=== PATIENT | female | born 1985 ===

== ENCOUNTER 2020-06-09 04:38 | Emergency (ER) | payer MEDICAID, SELFPAY ==
[2020-06-09 05:15] VITALS: BP 120/65; PULSE 65; RESP 16; TEMP 37.1; O2SAT 99; BMI 21.2
[2020-06-09 05:19] VITALS: O2SAT 99
--- NOTE | 2020-06-09 05:31 | XR_ITS ---
EXAMINATION: XR CHEST CLINICAL INFORMATION: Cough COMPARISON: None TECHNIQUE: Frontal view of the chest was obtained. FINDINGS: The lungs are clear with no focal consolidation. No evidence of pneumothorax, pulmonary edema, or pleural effusions. The cardiomediastinal silhouette is unremarkable. No acute osseous findings. XR/XR chest 1V IMPRESSION: No acute cardiopulmonary findings.
--- NOTE | 2020-06-09 05:33 | ED_ITS ---
HPI - URI/Sore Throat General Chief Complaint: Upper Respiratory Symptoms Stated Complaint: COUGH Time Seen by Provider: 06/09/20 05:31 Source: patient Mode of arrival: ambulatory Limitations: no limitations History of Present Illness HPI Narrative: This is a 34-year-old female who is an everyday smoker who presents with 2 days of worsening cough and rhinorrhea without associated fevers, chills, sore throat, chest pain /palpitations, recent travel, GI symptoms, or symptoms. Related Data Allergies Allergy/AdvReac Type Severity Reaction Status Date / Time No Known Allergies Allergy Unverified 03/25/20 16:55 Review of Systems Review of Systems: Pertinent positives and negatives as stated in HPI and 10 point review of systems is otherwise negative. [facility] Past Medical History Source: nursing notes reviewed Social History Social History Advance Directives: No Advance Directives Information Provided: No Physical Exam Vital Signs: Vital Signs: Last Vital Signs Temp 98.8 F 06/09/20 05:15 Pulse 65 06/09/20 05:15 Resp 16 06/09/20 05:15 BP 120/65 06/09/20 05:15 Pulse Ox 99 06/09/20 05:19 Body Mass Index 21.2 VITAL SIGNS: Reviewed. GENERAL: Well developed, well nourished, in no acute distress. HEAD: Normocephalic/atraumatic, EYES: PERRLA, EOMI intact without pain, no nystagmus/pallor/icterus noted EARS: Ext canals without abnormality, TMs non-bulging and non-erythematous NOSE: Nares patent bilateral OROPHARYNX: no oral lesions noted, posterior pharynx clear and non-erythematous without noted tonsillar enlargement/erythema/exudates NECK: Supple, no adenopathy LUNGS: Normal breath sounds. No adventitious sounds or accessory muscle use. SpO2<99> CARDIOVASCULAR: Regular rate and rhythm without noted murmurs, no JVD or lower extremity edema. ABDOMEN: Soft, non-tender, non-distended with bowel sounds. No rigidity. No guarding. No palpable masses or hernias noted MUSCULOSKELETAL: No tenderness, deformities, or effusions noted on gross inspection. EXTREMITIES: No cyanosis, clubbing or edema. SKIN: Inspection of the skin reveals no rashes, ulcerations, jaundice, pallor, or petechiae. NEUROLOGIC: Alert and oriented x 4. Strength and sensation to light touch were grossly intact x 4. Course Course Course Narrative: This is a 34-year-old female smoker with history and clinical presentation consistent with likely viral URI but will evaluate for possible pneumonia although patient is not hypoxic, tachypneic, or a tachycardic. Patient will also be swabbed for COVID-19 and receive a combination of analgesics for symptom control. All results and findings were discussed with patient bedside and she was discharged home in stable condition. Review of chest x-ray is without acute findings to suggest pneumonia. Discharge Plan Discharge Clinical Impression: Viral syndrome Patient Disposition: Home, Self-Care Instructions: Viral Syndrome (ED) Additional Instructions: 1. Tylenol 1000 mg, por v?a oral, cada 6 horas seg?n sea necesario para temperaturas superiores a 100,4?C o owen corporales. No exceda los 4000 mg en 24 horas. 2. Ibuprofeno 400 mg, por v?a oral con leche o alimentos, cada 6 horas seg?n sea necesario para temperaturas superiores a 100,4?C o owen corporales. 3. me pusieron un hisopo para COVID-19 y me pusieron en cuarentena seg?n las pautas del estado de [place] hasta que lo llamen con los resultados de lee prueba. El paciente y / o la shazia reconocen que comprenden los resultados (seg?n corresponda), el diagn?stico, el plan de tratamiento, la necesidad de seguimiento y los s?ntomas que deber?an impulsar el regreso a la myra de emergencias. Referrals: Physician,Unknown [Primary Care Provider] - 2 days Print Language: Divehi
[2020-06-09] MEDS: Acetaminophen 325 MG TABLET 975 MG PO (06:03)
[2020-06-09] MEDS: Ketorolac Tromethamine 15 MG/ML VIAL IM (06:04)
[2020-06-09 07:28] VITALS: BP 98/56; PULSE 68; O2SAT 97
== END 2020-06-09 07:29 | disposition home or self-care (01) ==
PROVIDERS: Emergency Provider Student in an Organized Health Care Education/Training Program
DX: B34.9 Viral infection, unspecified (principal); R05 Cough; Z20.828 Contact with and (suspected) exposure to other viral communicable diseases; F17.200 Nicotine dependence, unspecified, uncomplicated; Z71.6 Tobacco abuse counseling
CPT/HCPCS: 71045; 96372; 99284; J1885; U0003

== ENCOUNTER 2020-06-29 11:01 | Outpatient (REF) | payer MEDICAID, SELFPAY | END 2020-06-29 11:02 | disposition home or self-care (01) | LOC: HO.LAB 11:01 | PROVIDERS: Visit Provider Internal Medicine | DX: Z20.828 Contact with and (suspected) exposure to other viral communicable diseases (principal) | CPT/HCPCS: C9803; U0003 ==

== ENCOUNTER 2020-08-09 09:31 | Outpatient (REF) | payer MEDICAID, SELFPAY ==
[2020-08-10 08:47] LABS: BV Int Neg Control Negative (Negative); BV Int Pos Control Positive (Positive)
[2020-08-10 19:27] LABS: C. trachomatis RNA TMA NOT DETECTED (NOT DETECTED); N. gonorrhoeae RNA TMA NOT DETECTED (NOT DETECTED)
[2020-08-12 17:07] LABS: HPV mRNA E6/E7 rflx Not Detected (Not Detected)
== END 2020-08-09 09:32 | disposition home or self-care (01) ==
LOC: HO.LAB 09:31
PROVIDERS: Visit Provider Obstetrics & Gynecology
DX: Z01.419 Encounter for gynecological examination (general) (routine) without abnormal findings (principal); Z11.3 Encounter for screening for infections with a predominantly sexual mode of transmission; Z11.51 Encounter for screening for human papillomavirus (HPV)
CPT/HCPCS: 36415; 87480; 87491; 87510; 87591; 87624; 87660; 88142

== ENCOUNTER 2020-08-11 10:59 | Outpatient (REF) | payer MEDICAID, SELFPAY ==
[2020-08-11 13:48] LABS: Syphilis Screen Nonreactive (Nonreactive)
[2020-08-12 08:37] LABS: HBsAGNum1 0.19 S/CO (0.00-0.99); HIV AB/AG Nonreactive (Nonreactive); HIV Num 1 0.06 S/CO (0.00-0.99); Hepatitis B Surface Antigen Negative (Negative)
[2020-08-12 08:42] LABS: ~HepC Num1 0.17 S/CO (0.00-0.79); ~Hepatitis C Antibody Nonreactive (Nonreactive)
[2020-08-12 17:32] LABS: C. trachomatis RNA TMA NOT DETECTED (NOT DETECTED); N. gonorrhoeae RNA TMA NOT DETECTED (NOT DETECTED)
== END 2020-08-11 11:00 | disposition home or self-care (01) ==
LOC: HO.LAB 10:59
PROVIDERS: PCP Internal Medicine; Visit Provider Obstetrics & Gynecology
DX: Z11.3 Encounter for screening for infections with a predominantly sexual mode of transmission (principal); Z11.8 Encounter for screening for other infectious and parasitic diseases; Z11.4 Encounter for screening for human immunodeficiency virus [HIV]; Z11.59 Encounter for screening for other viral diseases
CPT/HCPCS: 36415; 86780; 86803; 87340; 87389; 87491; 87591

== ENCOUNTER 2020-09-14 14:48 | Outpatient (REF) | payer MEDICAID, SELFPAY | END 2020-09-14 14:49 | disposition home or self-care (01) | LOC: HO.LAB 14:48 | PROVIDERS: Visit Provider Internal Medicine | DX: Z20.822 Contact with and (suspected) exposure to COVID-19 (principal) | CPT/HCPCS: 36415; C9803; U0003; U0005 ==

== ENCOUNTER 2020-12-13 10:57 | Outpatient (REF) | payer MEDICAID, SELFPAY ==
[2020-12-14 02:41] LABS: CT PCR NOT DETECTED (Not Detect.); NG PCR DETECTED (Not Detect.)
[2020-12-14 08:30] LABS: BV Int Neg Control Negative (Negative); BV Int Pos Control Positive (Positive)
== END 2020-12-13 10:58 | disposition home or self-care (01) ==
LOC: HO.LAB 10:57
PROVIDERS: PCP Family Medicine; Visit Provider Obstetrics & Gynecology
DX: Z11.3 Encounter for screening for infections with a predominantly sexual mode of transmission (principal)
CPT/HCPCS: 87480; 87491; 87510; 87591; 87660; 99212

== ENCOUNTER 2020-12-14 10:33 | Outpatient (REF) | payer MEDICAID, SELFPAY ==
[2020-12-15 09:11] LABS: Syphilis Screen Nonreactive (Nonreactive)
[2020-12-15 09:17] LABS: HIV AB/AG Nonreactive (Nonreactive); HIV Num 1 0.07 S/CO (0.00-0.99)
[2020-12-15 09:58] LABS: HBsAGNum1 0.24 S/CO (0.00-0.99); Hepatitis B Surface Antigen Negative (Negative); ~HepC Num1 0.11 S/CO (0.00-0.79); ~Hepatitis C Antibody Nonreactive (Nonreactive)
== END 2020-12-14 10:34 | disposition home or self-care (01) ==
LOC: HO.LAB 10:33
PROVIDERS: PCP Family Medicine; Visit Provider Obstetrics & Gynecology
DX: Z01.84 Encounter for antibody response examination (principal); Z11.4 Encounter for screening for human immunodeficiency virus [HIV]; Z11.3 Encounter for screening for infections with a predominantly sexual mode of transmission; A54.9 Gonococcal infection, unspecified
CPT/HCPCS: 36415; 86780; 86803; 87340; 87389; 96372; 99212; J0696

== ENCOUNTER 2021-01-12 13:49 | Outpatient (REF) | payer MEDICAID, SELFPAY ==
[2021-01-13 02:49] LABS: CT PCR NOT DETECTED (Not Detect.); NG PCR NOT DETECTED (Not Detect.)
== END 2021-01-12 13:50 | disposition home or self-care (01) ==
LOC: HO.LAB 13:49
PROVIDERS: Visit Provider Obstetrics & Gynecology
DX: Z11.3 Encounter for screening for infections with a predominantly sexual mode of transmission (principal); A54.9 Gonococcal infection, unspecified
CPT/HCPCS: 87491; 87591; 99212

== ENCOUNTER 2021-03-28 11:24 | Outpatient (REF) | payer MEDICAID, SELFPAY | END 2021-03-28 11:25 | disposition home or self-care (01) | LOC: HO.LAB 11:24 | PROVIDERS: Visit Provider Internal Medicine | DX: Z20.822 Contact with and (suspected) exposure to COVID-19 (principal) | CPT/HCPCS: C9803; U0003; U0005 ==

== ENCOUNTER → 2021-08-10 09:08 | Outpatient (BNVA) | payer MEDICAID, SELFPAY | PROVIDERS: Visit Provider Obstetrics & Gynecology ==

== ENCOUNTER 2022-03-06 14:05 | Outpatient (REF) | payer MEDICAID, SELFPAY ==
--- NOTE | ~2022-03-06 | MM_ITS ---
EXAMINATION: MM DIAGNOSTIC DIGITAL BREAST TOMOSYNTHESIS, BILATERAL US DIAGNOSTIC ULTRASOUND BREAST, LEFT CLINICAL INFORMATION: 36-year-old with pain lower left breast. No erythema, discharge, or palpable mass. Patient notes prior history right breast pain, no recent right breast pain. Benign right ultrasound-guided biopsy 2019, fibroadenoma. Intentional 30 pound weight loss since prior mammography 2018. The lifetime risk of breast cancer based on the Tyrer-Cuzick Model is 8%. COMPARISON: Mammography: 07/15/2018, 07/03/2018, ultrasound-guided right breast biopsy 07/15/2018. TECHNIQUE: Digital breast tomosynthesis is performed in both the craniocaudal and mediolateral oblique views along with computer-aided detection (CAD). Synthesized 2D images are generated from the tomosynthesis. Ultrasound left breast is targeted to the areas of clinical concern lower left breast. Patient is able to point to the area of mastodynia at time of imaging. Grayscale imaging and color Doppler are performed without and with harmonics. FINDINGS: There are scattered areas of fibroglandular density (ACR BI-RADS breast composition Category b). The breasts appear symmetrically smaller when compared with prior mammography 2018 consistent with intentional weight loss. There is biopsy clip marker anterior 3:00 right breast. The known fibroadenoma is decreased in size. There is no interval mass or architectural abnormality. No abnormal calcifications. The axilla are unremarkable. There is no skin thickening or coarsening of the Rj's ligaments. Ultrasound demonstrates no cystic or solid mass or architectural abnormality or focal duct ectasia. No skin thickening or edema tracking in soft tissue planes. No hyperemia. Results are discussed with the patient at time of visit. MM/MM tomosynthesis diagnostic BI IMPRESSION: -No mammographic evidence of malignancy or inflammatory changes. -Normal targeted left breast ultrasound. ASSESSMENT: BI-RADS 2: Benign RECOMMENDATION: 1. Patient's left mastodynia should be managed based on the clinical impression. 2. Otherwise, routine annual screening mammography, beginning age 40, or earlier as clinical risk factors warrant. This patient's information was entered into a reminder system with a target due date for their next mammogram.
== END 2022-03-06 14:06 | disposition home or self-care (01) ==
LOC: HO.MAMMO 14:05
PROVIDERS: PCP General Practice; Visit Provider General Practice
DX: N64.4 Mastodynia (principal)
CPT/HCPCS: 76642; 77062; 77066

== ENCOUNTER 2023-01-22 11:31 | Outpatient (REF) | payer MEDICAID, SELFPAY ==
[2023-01-23 12:20] LABS: BV Int Neg Control Negative (Negative); BV Int Pos Control Positive (Positive)
== END 2023-01-22 11:32 | disposition home or self-care (01) ==
LOC: HO.HHCL 11:31
PROVIDERS: Visit Provider Internal Medicine
DX: F41.8 Other specified anxiety disorders (principal); N94.6 Dysmenorrhea, unspecified
CPT/HCPCS: 36415; 84439; 87480; 87510; 87660

== ENCOUNTER 2023-02-15 09:04 | Outpatient (AMB) | payer MEDICAID, SELFPAY ==
--- NOTE | 2023-02-15 09:11 | MHC.OFFVIS ---
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 No complaints. 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 Sexually active: Yes Sexual orientation: Straight/Heterosexual Gender identity: Female Female Reproductive History Menstrual Age of Menarche: 9 Duration of menses: 3-5 days Date of last menstrual period: 02/07/23 control method: permanent sterilization Total pregnancies: 6 Full term: 4 Number of Living Children: 4 Ab induced: 2 Date of last pap smear: 08/10/20 Review of Systems Const All systems reviewed & are unremarkable except as noted in HPI and below Card Reports as per HPI Resp Reports as per HPI GI Reports as per HPI and Reports no additional complaints Reports as per HPI Physical Exam Vital Signs: Last Vital Signs BP 98/60 02/15/23 09:15 BMI result Body Mass Index 20.5 Const General: cooperative, healthy appearing and comfortable Chest Chest palpation & inspection: normal inspection of the chest and normal palpation of entire chest wall Breast/axilla inspection: normal inspection of the breasts and normal inspection of the axillae Breast/axilla palpation: normal palpation of the breasts, normal palpation of the axillae and no axillary lymphadenopathy Resp Effort & Inspection: normal respiratory effort Auscultation: clear to auscultation bilaterally Percussion: percussion normal Cardio Palpation: normal PMI Rate: regular rate Rhythm: regular rhythm Heart sounds: no murmurs and no rubs Peripheral pulses: Peripheral pulses 2+ throughout GI Inspection: Yes normal to inspection Palpation (GI): Soft to palpation, nontender, no guarding, not rigid and No hepatosplenomegaly present Percussion: Yes normal to percussion Auscultation: normal bowel sounds Rectal Exam - Female: deferred General: Yes bladder normal to palpation External Female Exam: No lesion Speculum Exam - Vagina: normal appearance of the vagina, normal palpation, normal vaginal discharge and not erythematous Speculum Exam - Cervix: normal appearance of the cervix and normal palpation Bimanual exam- vagina & uterus: normal bimanual exam, normal palpation, uterine size normal, bladder normal to palpation, consistency normal and normal palpation Bimanual Exam- Adnexa, other: normal adnexae, no masses and no tenderness Assessment & Plan Assessment & Plan (1) Well woman exam: Comment: BERNARDINO 1 in 2018 2020 co testing negative Code(s): Z01.419 - Encounter for gynecological examination (general) (routine) without abnormal findings Plan: Cotesting done. Mammogram ordered. Counseled the patient about the recommended dietary allowance of 1000 mg of Calcium & 600 IU of vitamin D. The patient was instructed to perform monthly self-breast exams and to schedule an annual exam in a year; All questions answered and the patient verbalized understanding. Instructed the patient to schedule annual exam in a year (2) Screen for STD (sexually transmitted disease): Code(s): Z11.3 - Encounter for screening for infections with a predominantly sexual mode of transmission Plan: STD screening tests done includes: BV panel for trichomonas, GC/CT will send patient for serology std screening for HIV, RPR, Hep b s Ag, HepC Ab. Instructions given the patient to schedule a follow-up appointment for repeat serology screen in 6 months for possible false negatives. Orders: Orders Hepatitis B Surface Antigen Today Z20.2 - Contact with and (suspected) exposure to infections with a predominantly sexual mode of transmission Hepatitis C Antibody Today Z20.2 - Contact with and (suspected) exposure to infections with a predominantly sexual mode of transmission HIV Ab/Ag Today Z20.2 - Contact with and (suspected) exposure to infections with a predominantly sexual mode of transmission Syphilis Screen Today Z20.2 - Contact with and (suspected) exposure to infections with a predominantly sexual mode of transmission Coding Level of Care Code Est Pt Prev Care 40-64y(96209) Diagnoses Well woman exam Z01.419 Screen for STD (sexually transmitted disease) Z11.3
[2023-02-15 09:15] VITALS: BP 98/60; BMI 20.5
== END 2023-02-15 09:38 | disposition home or self-care (01) ==
LOC: HO.HWS 09:04
PROVIDERS: PCP General Practice; Visit Provider Obstetrics & Gynecology
DX: Z01.419 Encounter for gynecological examination (general) (routine) without abnormal findings (principal); Z11.3 Encounter for screening for infections with a predominantly sexual mode of transmission
CPT/HCPCS: 99395

== ENCOUNTER 2023-02-15 09:04 | Outpatient (REF) | payer MEDICAID, SELFPAY ==
[2023-02-20 05:09] LABS: HPV mRNA E6/E7 rflx Not Detected (Not Detected)
== END 2023-02-15 09:05 | disposition home or self-care (01) ==
LOC: HO.LNP 09:04
PROVIDERS: PCP General Practice; Visit Provider Obstetrics & Gynecology
DX: Z01.419 Encounter for gynecological examination (general) (routine) without abnormal findings (principal); Z11.51 Encounter for screening for human papillomavirus (HPV)
CPT/HCPCS: 87624; 88142

== ENCOUNTER 2023-02-15 09:43 | Outpatient (REF) | payer MEDICAID, SELFPAY ==
[2023-02-16 03:06] LABS: Syphilis Screen Nonreactive (Nonreactive)
[2023-02-16 03:08] LABS: HBsAGNum1 0.32 S/CO (0.00-0.99); HIV AB/AG Nonreactive (Nonreactive); HIV Num 1 0.06 S/CO (0.00-0.99); Hepatitis B Surface Antigen Negative (Negative); ~HepC Num1 0.11 S/CO (0.00-0.79); ~Hepatitis C Antibody Nonreactive (Nonreactive)
[2023-02-16 05:10] LABS: CT PCR NOT DETECTED (Not Detect.); NG PCR NOT DETECTED (Not Detect.)
[2023-02-16 11:44] LABS: BV Int Neg Control Negative (Negative)
[2023-02-16 11:45] LABS: BV Int Pos Control Positive (Positive)
== END 2023-02-15 09:44 | disposition home or self-care (01) ==
LOC: HO.LAB 09:43
PROVIDERS: Visit Provider Obstetrics & Gynecology
DX: Z01.419 Encounter for gynecological examination (general) (routine) without abnormal findings (principal); Z11.4 Encounter for screening for human immunodeficiency virus [HIV]; Z11.3 Encounter for screening for infections with a predominantly sexual mode of transmission; Z20.2 Contact with and (suspected) exposure to infections with a predominantly sexual mode of transmission
CPT/HCPCS: 0353U; 86780; 86803; 87340; 87389; 87480; 87510; 87660

== ENCOUNTER 2023-02-16 08:16 | Outpatient (REF) | payer MEDICAID, SELFPAY | END 2023-02-16 08:17 | disposition home or self-care (01) | LOC: HO.LAB 08:16 | PROVIDERS: Visit Provider Obstetrics & Gynecology | DX: Z13.89 Encounter for screening for other disorder (principal) ==

== ENCOUNTER 2024-06-09 12:47 | Outpatient (REF) | payer MEDICAID, SELFPAY ==
[2024-06-10 11:36] LABS: Bacterial Vaginosis PCR POSITIVE (Negative); Candida Group PCR NOT DETECTED (Not Detect); Candida glab krusei PCR NOT DETECTED (Not Detect); Trichomonas vaginalis PCR NOT DETECTED (Not Detect)
[2024-06-10 12:06] LABS: CT PCR NOT DETECTED (Not Detect.); NG PCR NOT DETECTED (Not Detect.)
== END 2024-06-09 12:48 | disposition home or self-care (01) ==
LOC: HO.LNP 12:47
PROVIDERS: PCP General Practice; Visit Provider Obstetrics & Gynecology
DX: Z01.419 Encounter for gynecological examination (general) (routine) without abnormal findings (principal); Z11.3 Encounter for screening for infections with a predominantly sexual mode of transmission; Z20.2 Contact with and (suspected) exposure to infections with a predominantly sexual mode of transmission
CPT/HCPCS: 0352U; 87491; 87591; 99395

== ENCOUNTER 2024-06-09 12:47 | Outpatient (AMB) | payer MEDICAID, SELFPAY ==
--- NOTE | 2024-06-09 12:50 | A.OFFVIS_ITS ---
Vital Signs 06/09/24 12:56 Height 5 ft 1 in Weight 120 lb BMI 22.7 BP 116/68 Intake Visit Reasons: annual/DO NOT RS X2 President + Publisher Required: Yes President + Publisher Language: Biscuit Machine Operator Services: President + Publisher Present (in person) President + Publisher Name: Kelly ERNST Information Interpreted: non-clinical & clinical Pharmacy Coordinator: Pharmacy Coordinator Present (Kelly ERNST) Accompanied by: Self / Same As Patient Allergies No Known Allergies Allergy (Verified 06/09/24 12:57) Is last menstrual period known: Yes HPI Comments Details: Presenting for annual exam. No complaints. The patient is requesting STD screen Last Pap/HPV was negative in 02/28, this was preceded by BERNARDINO in 2018, followed by negative co testing in 2020 Last Mammogram was BI-RADS 2 in 02/27 [facility] Medical History Dysplasia of cervix, low grade (BERNARDINO 1) Anxiety Surgical History History of tubal ligation Family History Mother Diabetes Social History Household Members: Children Housing: Apartment Alcohol intake: current Alcohol intake frequency: holidays/special occasions only Patient Tobacco Use Status: Never used Tobacco Substance Use Type: Marijuana Current occupational status: employed 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 Sexual orientation: Straight/Heterosexual Gender identity: Female Female Reproductive History Menstrual Age of Menarche: 9 control method: permanent sterilization Total pregnancies: 6 Full term: 4 Number of Living Children: 4 Ab induced: 2 Date of last pap smear: 02/16/23 Review of Systems Const All systems reviewed & are unremarkable except as noted in HPI and below Card Reports as per HPI Resp Reports as per HPI GI Reports as per HPI and Reports no additional complaints Reports as per HPI Physical Exam Vital Signs: Last Vital Signs BP 116/68 06/09/24 12:56 BMI result Body Mass Index 22.7 Const General: cooperative, healthy appearing and comfortable Chest Chest palpation & inspection: normal inspection of the chest and normal palpation of entire chest wall Breast/axilla inspection: normal inspection of the breasts and normal inspection of the axillae Breast/axilla palpation: normal palpation of the breasts, normal palpation of the axillae and no axillary lymphadenopathy Resp Effort & Inspection: normal respiratory effort Auscultation: clear to auscultation bilaterally Percussion: percussion normal Cardio Palpation: normal PMI Rate: regular rate Rhythm: regular rhythm Heart sounds: no murmurs and no rubs Peripheral pulses: Peripheral pulses 2+ throughout GI Inspection: Yes normal to inspection Palpation (GI): Soft to palpation, nontender, no guarding, not rigid and No hepatosplenomegaly present Percussion: Yes normal to percussion Auscultation: normal bowel sounds Rectal Exam - Female: deferred General: Yes bladder normal to palpation External Female Exam: No lesion Speculum Exam - Vagina: normal appearance of the vagina, normal palpation, normal vaginal discharge and not erythematous Speculum Exam - Cervix: normal appearance of the cervix and normal palpation Bimanual exam- vagina & uterus: normal bimanual exam, normal palpation, uterine size normal, bladder normal to palpation, consistency normal and normal palpation Bimanual Exam- Adnexa, other: normal adnexae, no masses and no tenderness Assessment & Plan Assessment & Plan (1) Well woman exam: Comment: BERNARDINO 1 in 2019 2020 in 2022 co testing negative Code(s): Z01.419 - Encounter for gynecological examination (general) (routine) without abnormal findings Category: Medical Plan: Cotesting done. Mammogram ordered. Counseled the patient about the recommended dietary allowance of 1000 mg of Calcium & 600 IU of vitamin D. The patient was instructed to perform monthly self-breast exams and to schedule an annual exam in a year; All questions answered and the patient verbalized understanding. Instructed the patient to schedule annual exam in a year (2) Screen for STD (sexually transmitted disease): Code(s): Z11.3 - Encounter for screening for infections with a predominantly sexual mode of transmission Category: Medical Plan: STD screening tests done includes: BV panel for trichomonas, GC/CT will send patient for serology std screening for HIV, RPR, Hep b s Ag, HepC Ab. Instructions given the patient to schedule a follow-up appointment for repeat serology screen in 6 months for possible false negatives. Orders: Orders MM tomosynthesis screening BI 4 Months Z12.31 - Encounter for screening mammogram for malignant neoplasm of breast Hepatitis B Surface Antigen Today Z20.2 - Contact with and (suspected) exposure to infections with a predominantly sexual mode of transmission Hepatitis C Antibody Today Z20.2 - Contact with and (suspected) exposure to infections with a predominantly sexual mode of transmission HIV Ab/Ag Today Z20.2 - Contact with and (suspected) exposure to infections with a predominantly sexual mode of transmission Syphilis Screen Today Z20.2 - Contact with and (suspected) exposure to infections with a predominantly sexual mode of transmission Coding Level of Care Code Est Pt Prev Care 18-39y(40909) Diagnoses Well woman exam Z01.419 Screen for STD (sexually transmitted disease) Z11.3
[2024-06-09 12:56] VITALS: BP 116/68; BMI 22.7
== END 2024-06-09 13:38 | disposition home or self-care (01) ==
PROVIDERS: PCP General Practice; Visit Provider Obstetrics & Gynecology
DX: Z01.419 Encounter for gynecological examination (general) (routine) without abnormal findings (principal); Z11.3 Encounter for screening for infections with a predominantly sexual mode of transmission
CPT/HCPCS: 99395

== ENCOUNTER 2024-06-09 13:13 | Outpatient (REF) | payer MEDICAID, SELFPAY ==
[2024-06-10 04:00] LABS: Syphilis Screen Nonreactive (Nonreactive)
[2024-06-10 04:25] LABS: HBsAGNum1 0.35 S/CO (0.00-0.99); HIV AB/AG Nonreactive (Nonreactive); HIV Num 1 0.06 S/CO (0.00-0.99); Hepatitis B Surface Antigen Negative (Negative); ~HepC Num1 0.12 S/CO (0.00-0.79); ~Hepatitis C Antibody Nonreactive (Nonreactive)
== END 2024-06-09 13:14 | disposition home or self-care (01) ==
LOC: HO.LAB 13:13
PROVIDERS: PCP General Practice; Visit Provider Obstetrics & Gynecology
DX: Z11.4 Encounter for screening for human immunodeficiency virus [HIV] (principal); Z20.2 Contact with and (suspected) exposure to infections with a predominantly sexual mode of transmission
CPT/HCPCS: 0352U; 86780; 86803; 87340; 87389; 87491; 87591; 99395

== ENCOUNTER 2024-06-23 11:05 | Outpatient (REF) | payer MEDICAID, SELFPAY ==
[2024-06-26 04:43] LABS: TS Negative Control Passed; TS Panel A 0; TS Panel B 0; TS Positive Control Passed; TSpotTB Negative (Negative)
== END 2024-06-23 11:06 | disposition home or self-care (01) ==
LOC: HO.HHCL 11:05
PROVIDERS: Visit Provider General Practice
DX: Z02.1 Encounter for pre-employment examination (principal)
CPT/HCPCS: 36415; 86481

== ENCOUNTER → 2024-07-15 17:02 | Outpatient (BNV) | payer MEDICAID, SELFPAY | PROVIDERS: PCP General Practice; Visit Provider Radiology Diagnostic Radiology | DX: M54.50 Low back pain, unspecified (principal); R05.9 Cough, unspecified | CPT/HCPCS: 71045; 72100 ==

== ENCOUNTER 2025-04-07 23:04 | Emergency (ER) | payer MEDICAID, SELFPAY ==
--- NOTE | ~2025-04-07 | XR_ITS ---
CLINICAL HISTORY: fall 3 views sacrum and coccyx Comparison: None provided Findings No acute fractures. No significant degenerative change. No erosions. IMPRESSION: No acute findings This document has been electronically signed by: Meera Hunter MD on 04/08/2025 04:11:23
[2025-04-07 23:08] VITALS: BP 103/55; PULSE 71; RESP 16; TEMP 36.3; O2SAT 95; BMI 23.0
--- OUTSIDE RECORDS SUMMARY | 2025-04-08 01:36 | XMS_ITS | Clinical Summary ---
Author Organization [employer] Address [address] [facility] [address] [place] [address] Care Team Providers Care Material Handler Loader Name Role Phone Yaa Ortiz MD Primary Care Provider [phone] Allergies No known active allergies Medications * This document contains information received from the source organization and may not represent a complete record from that organization. ketotifen (Zaditor) 0.025 % ophthalmic solutionIndication s:Acute bacterial conjunctivitis of both eyes Administer 1 drop into both eyes in the morning and at bedtime. 10 mL 2 Active hydrOXYzine pamoate (Vistaril) 25 MG capsule Take 1 capsule (25 mg) by mouth every 8 (eight) hours if needed for anxiety. 90 capsule 3 4 Active escitalopram (Lexapro) 5 MG tabletIndications: Depression with anxiety Take 1 tablet (5 mg) by mouth Once per day. For anxiety 90 tablet 2 4 Active loratadine (Claritin) 10 MG tablet Take 1 tablet (10 mg) by mouth Once per day. 30 tablet 4 025 Active Active Problems Problem Noted Date Diagnosed Date Problem related to housing and economic circumst ances 05/30/2024 Panic disorder 05/30/2024 Dysmenorrhea 01/22/2023 Assessment & Plan (01/22/2023 11:07 AM EDT): Do not miss appointment with gynecology BV test done today Irregular periods 01/22/2023 Annual physical exam 12/12/2022 Depression with anxiety 12/12/2022 Assessment & Plan (06/01/2024 5:49 PM EST): Switch from Sertraline to Lexapro 5mg Watch out for side effects of SI, stomach upset, nausea, FLOYD. Stop if SI occurs, to inform me if other side effects occur Can increase to 10mg in 4-6 weeks if no side effects Spoke with today, who placed her on referral lists again, and [facility] consult Assessment & Plan (01/22/2023 11:06 AM EDT): Counseling done N called today I ask patient to take her sertraline every day as prescribed Ill check TSH Assessment & Plan (12/14/2022 10:28 AM EDT): Assessment: Patient with no interest/pleasure in doing things, feeling depressed/hopeless, sleep disturbance, no energy/feeling tired, poor appetite, feeling bad about herself, trouble focusing, feeling anxious/on edge and changes in speech and movement. She denies SI/HI. Presentation in the context of severe depression that began three years ago, at risk of losing her apartment and inability to work her complete hours at work. Patient will benefit from OP therapy, psychopharmacology, and case management. At this time Juju Turcios meets criteria for Visit Diagnoses: Problem List Items Addressed This Visit Other Depression with anxiety Patient ready to address current needs Yes Strengths include unable to assess PLAN: 1. Follow up with [facility]: Not recommended for follow-up 2. Patient goal is receive services. 3. Behavioral Recommendations a. Patient will engage in OP therapy and psychopharmacology services when established b. Patient will work with case management c. Patient will request to speak with a [facility] during next visit, if needed Cervical intraepithelial neoplasia grade 1 06/23 Vitamin D deficiency 10/29/2018 Loss of hair 06/24/2018 Marijuana use 06/24/2018 Pain of breast 06/24/2018 Telogen effluvium 06/24/2018 Resolved Problems Problem Noted Date Diagnosed Date Resolved Date Acute bacterial conjunctivitis of both eyes 06/23/2022 05/30/2024 Assessment & Plan (06/23/2022 2:58 PM EST): Right > left. No chemosis, normal ROM of eye. Will start with antibiotics, f/up if no improvement of symptoms. Encounters Date Type Department Care Team Description 03/24/2025 Telephone [facility] [address] [place], [place] [phone] Yaa Ortiz MD Nov Recall from Last 3 Months Immunizations Immunization Administration Dates Next Due Hep B, adult 11/23/2015 Influenza injectable quadrivalent preservative f ree 06/24/2018 Pfizer Covid-19 Vaccine 12+ 05/25/2021, Pfizer Covid-19 Vaccine 12+ giulia-sucrose (Fried C ap) 12/27/2021 Tdap 06/24/2018 Varicella 12/27/2021,11/23/2015 Family History Medical History Relation Name Comments Cancer Maternal Grandfather Diabetes type II Maternal Grandfather Diabetes type II Maternal Grandmother Heart disease Maternal Grandmother Diabetes type II Mother Relation Name Status Comments Maternal Grandfather Maternal Grandmother Mother Social History Tobacco Use Types Packs/Day Years Used Date Smoking Tobacco: Every Day Cigarettes Passive Smoke Exposure: Never Smokeless Tobacco: Never Tobacco Cessation:Ready to Q uit: Not Asked; Counseling Given: Not Answered Alcohol Use Standard Drinks/Week Comments Never 0 (1 standard drink = 0.6 oz pur e alcohol) Alcohol Answer Date Recorded How often do you have a drink containing alcohol ? 1 05/30/2024 How many drinks containing a lcohol do you have on a typical day when you are drinking? 0 05/30/2024 How often do you have six or more drinks on one occasion? 0 05/30/2024 Depression Answer Date Recorded Patient Health Questionnaire-9 Score 21 05/30/2024 Patient Health Questionnaire-9 Score 21 05/30/2024 Last PHQ-9: Questionnaire Data Not on file 1 07/30/2023 Housing Stability Answer Date Recorded What is your housing situation today? I do not have housing (Staying with others, in a hotel, in a senior care, living outside on the street, on a beach, in a car, or in a park 05/30/[address] you li ve. Do you have problems with any of the following? None of the above 05/30/2024 Food Insecurity Answer Date Recorded Within the past 12 months, y ou worried that your food would run out before you got money to buy more: Never True 05/22/2024 Within the past 12 months,th e food you bought just didn't last and you didn't have enough money to get more: Never True Transportation Answer Date Recorded In the past 12 months, has l ack of transportation kept you from medical appts, meetings, work or from getting things needed for daily living? No 05/22/2024 Utilities Answer Date Recorded In the past 12 months, has t he electric, gas, oil or water company threatened to shut off services in your home? 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 Not on file Not on file Last Filed Vital Signs Vital Sign Reading Time Taken Comments Blood Pressure 100/70 05/30/2024 10:25 AM EST Pulse 62 05/30/2024 10:25 AM EST Temperature 37.1 C (98.7 F) 05/30/2024 10:25 AM EST Respiratory Rate 18 05/30/2024 10:25 AM EST Oxygen Saturation 98% 01/22/2023 10:05 AM EDT Inhaled Oxygen Concentration - - Weight 53.6 kg (118 lb 4 oz) 05/30/2024 10:25 AM EST Height 157.5 cm (5' 2 ) 05/30/2024 10:25 AM EST Body Mass Index 21.63 05/30/2024 10:25 AM EST Plan of Treatment Health Maintenance Due Date Last Done Comments Lipid Panel 1985 Disability Screening 1985 Family Planning (PISQ) 10/21/1999 HPV Vaccines (1 - 3-dose series) 10/21/1999 Pneumococcal Vaccine: Pediatrics (0 to 5 Years) and At-Risk Patients (6 to 49) Years (1 of 2 - PCV) 10/21/2003 Hepatitis B Vaccines (2 of 3 - 19+ 3-dose series) 12/21/2015 11/23/2015 Mammogram 03/06/2023 03/06/2022, 07/03/2018 Depression Monitoring 11/27/2024 05/30/2024 , 05/30/2024 COVID-19 Vaccine (4 - 2024-2 6 season) 2025 12/27/2021, 05/25/2021, 04/25/2021 Influenza Vaccine (#1) 2025 06/24/2018 Alcohol/Substance Use Screening 05/30/2025 05/30/2024 SDOH Screening 05/30/2025 05/30/2024 Tobacco Screening 05/30/2025 05/30/2024 Cervical Cancer Screening 02/16/2028 HPV/Cotest 02/16/2028 08/09/2020, 08/09/2020 Pap Smear 02/16/2028 02/15/2023, 08/09/2020, 01/16/2019 DTaP/Tdap/Td Vaccines (2 - T d or Tdap) 06/24/2028 06/24/2018 Zoster Vaccines (1 of 2) 2034 RSV Patients and Patients Aged 60 years or older (1 - 1-dose 75+ series) 10/21/2059 HIV Screening Completed 06/09/2024, 12/14/2020, 08/11/2020 Hepatitis C Screening Completed 06/09/2024 , 12/14/2020, 08/11/2020 HIB Vaccines Aged Out No longer eligi ble based on patient's age to complete this topic Hepatitis A Vaccines Aged Out No long er eligible based on patient's age to complete this topic IPV Vaccines Aged Out No longer eligi ble based on patient's age to complete this topic Meningococcal B Vaccine Aged Out No l onger eligible based on patient's age to complete this topic Meningococcal Vaccine Aged Out No celi pierce eligible based on patient's age to complete this topic RSV under 20 months Aged Out No longe r eligible based on patient's age to complete this topic Rotavirus Vaccines Aged Out No longer eligible based on patient's age to complete this topic Procedures Procedure Name Priority Date/Time Associated Diagnosis Comments HEPATITIS C ANTIBODY Routine 06/09/2024 1:29 PM EST HIV 1/2 ANTIGEN/ANTIBODY, FOURTH GENERATION W/RFL Routine 06/09/2024 1:29 PM EST PAP SMEAR Routine 02/15/2023 9:33 AM EDT MAMMOGRAM GENERIC Routine 03/06/2022 3:0 0 PM EDT ZZZ HISTORICAL HPV E6/E7 RFLX JOHAN 16 18/45 Routine 08/09/2020 10:21 AM EST from Last 3 Months or Most Recently Relevant to Health Maintenance Results * Hepatitis C Ab (06/09/2024 1:29 PM EST) Hepatitis C Antibody Nonreactive Nonreactive [facility] Comment:Antibodies to HCV no t detected; does not exclude early acuteHCV infection. 06/09/2024 1:29 PM EST 06/09/2024 1:29 PM EST us Generic External Data Provider LAB BLOOD ORDERAB LES Final Result [facility] [address] [place] [phone] * HIV-1/2 Antigen and Antibodies, Fourth Generation, with Reflexes (06/09/2024 1:29 PM EST) HIV AB/AG Nonreactive Nonreactive [facility] Comment:HIV-1 p24 Ag and/or HIV-1/HIV-2 Ab not detected.A test result that is nonreactive does not exclude thepossibility of exposure to or infection with HIV-1 and/orHIV-2. Nonreactive results in this assay for individualswith prior exposure to HIV-1 and/or HIV-2 may be due toantigen and antibody levels that are below the limit ofdetection of this assay.The [employer] HIV Ag/Ab Combo assay result andsupplemental assay results should be interpreted inconjunction with the patient's clinical presentation,history and other laboratory results. If the results areinconsistent with clinical evidence, additional testing issuggested to confirm the result. 06/09/2024 1:29 PM EST 06/09/2024 1:29 PM EST us Generic External Data Provider LAB BLOOD ORDERAB LES Final Result [facility] [address] [place] [phone] * Pap Smear (02/15/2023 9:33 AM EDT) 02/15/2023 9:33 AM EDT 02/16/2023 9:30 AM EDT Narrative [facility] - 03/03/2023 4:21 PM EDT ----- ------- Name: Juju Roberto Age/Sex: 37/F : 1985 Unit#: [id number] Attend Dr: Timothy España MD Re02/15/23 Status: DEP [facility] Disch: ----- ------- SPEC : [id number] RECD: 02/16/23 STATUS: ROXANNE KUMARI NUM: [id number] CATIE: 02/15/[address] [facility] [address]: Timothy España MD ENTERED: 02/16/23-111 SP TYPE: Pap Smr OTHR DR: Yaa Ortiz ORDERED: Pap Smear Interpretation Satisfactory for evaluation. Negative for intraepithelial lesion or malignancy. Coccobacilli consistent with shift in vaginal bayron. HPV mRNA E6/E7: NOT DETECTED This assay detects E6/E7 viral messenger RNA (mRNA) from 14 high-risk HPV types (16, 18, 31, 33, 35, 39, 45, 51, 52, 56, 58, 59, 66, 68) HPV testing performed by [facility], [place], [place]. See reference laboratory portion of the EMR for entire report. Clinical Information LMP:02/07/23 Previous PAP test:2020, BERNARDINO I Material Received ThinPrep-Cervical Copies To: Yaa Ortiz [address] [place] [address] Timothy España MD [address] [place] [address] [address] ----- ------- Signed (signature on file) Ni Ladd Javon 03/03/23 1621 ----- ------- END OF REPORT [facility] External Provider LAB CYT OLOGY ORDERABLES Final Result [facility] [address] [place] [address] [phone] * Mammography Report 1 (03/06/2022 3:00 PM EDT) Anatomical Region Laterality Modality Breast Bilateral Mammography 03/06/2022 3:00 PM EDT Narrative 03/06/2022 3:41 PM EDT Refer to the Notes tab for result details [facility] Procedure: Mammography Report 1 Procedure Note Provider, MD Tomasz - 10/01/2022 Refer to the Notes tab for result details [facility] Procedure: Mammography Report 1 us Yaa Ortiz MD IMG BI PROCEDURES Final Result * HPV E6/E7 RFLX JOHAN 16 18/45 (08/09/2020 10:21 AM EST) HPV mRNA E6/E7 rflx Not Detected Not Detected [facility] Comment: Methodology: Wildlife Conservation Officer-Mediated Amplification This assay detects E6/E7 viral messenger RNA (mRNA) from 14 high-risk HPV types (16,18,31,33,35,39,45,51,52,56,58,59,66,68). The analytical performance characteristics of this assay have been determined by [facility]. The modifications have not been cleared or approved by the FDA. This assay has been validated pursuant to the CLIA regulations and is used for clinical purposes. For additional information, please refer to http://education.Sensus Experience/CDO624i2 (This link if provided for information/ educational purposes only.) THIS TEST WAS PERFORMED AT: [facility] [address] [facility] [address],[place] [address] ROC LARA MD 08/09/2020 10:2 1 AM EST us Timothy España MD HISTORICAL/NON ORDERABLE LABS Fi nal Result [facility] [address] from Last 3 Months or Most Recently Relevant to Health Maintenance Insurance [place] Care Teams Material Handler Loader Relationship Specialty Start Date End Date Yaa Ortiz MD [address] [place] [id number] PCP - General Family Medicine 05/25/20
--- OUTSIDE RECORDS SUMMARY | 2025-04-08 01:36 | XMS_ITS | Encounter Summary ---
Author Organization [employer] Address [address] [facility] [address] [place] [address] Care Team Providers Care Steam Finisher Name Role Phone Yaa Ortiz MD Primary Care Provider [phone] Encounter Details Date Type Department Care Team ([facility] st Contact Info) Description 01/26/2023 Orders Only [facility] [address] [place], [place] [phone] Yaa Ortiz MD [address] [place], [place] [phone] BV (bacterial vaginosis) (Primary Dx) Social History Tobacco Use Types Packs/Day Years Used Date Smoking Tobacco: Every Day Cigarettes Passive Smoke Exposure: Never Smokeless Tobacco: Never Alcohol Use Standard Drinks/Week Comments Never 0 (1 standard drink = 0.6 oz pur e alcohol) Depression Answer Date Recorded Patient Health Questionnaire-9 Score 18 12/11/2022 Depression Answer Date Recorded Patient Health Questionnaire-2 Score 6 12/11/2022 Comments Unknown Sex and Gender Information Value Date Recorded Sex Assigned at Female 05/08/2022 10:34 AM EDT Legal Sex Female 10:34 AM EDT Gender Identity Female 05/08/2022 10:34 AM EDT Sexual Orientation Straight 05/08/2022 10 :34 AM EDT 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 No / Unsure 01/15/2023 8:39 AM EDT documented as of this encounter Plan of Treatment Not on file documented as of this encounter Visit Diagnoses Diagnosis BV (bacterial vaginosis)- Primary Unspecified vaginitis and vulvovaginitis documented in this encounter Additional Health Concerns Assessment Noted Time PHQ-9 Depression Total Score: 18 023 11:04 AM EDT documented as of this encounter Care Teams Steam Finisher Relationship Specialty Start Date End Date Yaa Ortiz MD [address] [place] [address] PCP - General Family Medicine 05/25/20 documented as of this encounter
--- OUTSIDE RECORDS SUMMARY | 2025-04-08 01:36 | XMS_ITS | Encounter Summary ---
Author Organization [employer] Address [address] [facility] 7t [place] [address] Care Team Providers Care Rubber Compounder Name Role Phone Yaa Ortiz MD Primary Care Provider [phone] Encounter Details Date Type Department Care Team (Late st Contact Info) Description 11/22/2022 Abstract [facility] [address] [place], [place] [phone] Yaa Ortiz MD [address] [place], [place] [phone] Social History Tobacco Use Types Packs/Day Years Used Date Smoking Tobacco: Never Smokeless Tobacco: Never Alcohol Use Standard Drinks/Week Comments Never 0 (1 standard drink = 0.6 oz pur e alcohol) Comments Unknown Sex and Gender Information Value Date Recorded Sex Assigned at Female 05/08/2022 10:34 AM EDT Legal Sex Female 10:34 AM EDT Gender Identity Female 05/08/2022 10:34 AM EDT Sexual Orientation Straight 05/08/2022 10 :34 AM EDT documented as of this encounter Plan of Treatment Not on file documented as of this encounter Procedures Procedure Name Priority Date/Time Associated Diagnosis Comments HM PAP/HPV Routine 08/09/2020 12:00 AM EST COLPOSCOPY Routine 04/02/2019 12:00 AM EDT HM PAP/HPV Routine 01/16/2019 12:00 AM EDT documented in this encounter Results * Hm Pap Smear (08/09/2020 12:00 AM EST) us Historical Provider HEALTH MAINTENANCE Final Result * Colposcopy (04/02/2019 12:00 AM EDT) us Historical Provider IN CLINIC/BEDSIDE ORDERAB LES Final Result * Hm Pap Smear (01/16/2019 12:00 AM EDT) us Historical Provider HEALTH MAINTENANCE Final Result documented in this encounter Visit Diagnoses Not on filedocumented in this encounter Care Teams Rubber Compounder Relationship Specialty Start Date End Date Yaa Ortiz MD [address] [place] [address] PCP - General Family Medicine 05/25/20 documented as of this encounter
--- NOTE | 2025-04-08 02:58 | ED.BACK ---
HPI - Back Pain/Injury General Chief Complaint: Back Pain/Injury Stated Complaint: fall from a few days ago Time Seen by Provider: 04/08/25 01:46 Source: patient Mode of arrival: ambulatory Limitations: no limitations History of Present Illness ED Provider: Dr. Reyna Snyder HPI Narrative: Previously healthy 39-year-old female presenting with his buttock pain after fall that occurred 5 days ago. Admits that she fell down 5 concrete steps after it had rained on the steps were slippery. Fall was purely mechanical. She did not lose consciousness and was able to ambulate on her own after the fall however, she has been dealing with severe low back pain and buttock pain since the fall. Did not hit her head or lose consciousness. No numbness/tingling/weakness of the extremities. Has been using Motrin and Tylenol for pain at home without relief. Denies other injury. Had been feeling well prior to the fall. Related Data Home Medications ?Medication ?Instructions ?Recorded ?Confirmed cyclobenzaprine 5 mg tablet 5 mg PO DAILY 02/15/23 sertraline 50 mg tablet 50 mg PO QAM 02/15/23 Previous Rx's ?Medication ?Instructions ?Recorded cyclobenzaprine 5 mg tablet 5 mg PO BEDTIME PRN muscle spasm 07/16/24 #14 tabs lidocaine 5 % topical patch 1 patch topical DAILY #15 ea 07/16/24 (Lidoderm) ibuprofen 600 mg tablet 600 mg PO Q8H PRN fever or pain 04/08/25 #30 tabs lidocaine 5 % topical patch 1 patch topical DAILY #15 ea 04/08/25 methocarbamol 500 mg tablet 1,000 mg (2 x 500 mg) PO QID #20 04/08/25 tabs Allergies Allergy/AdvReac Type Severity Reaction Status Date / Time No Known Allergies Allergy Verified 04/07/25 23:11 Review of Systems Review of Systems: as per HPI, full review of systems performed and negative but for the above mentioned pertinent positives and negatives. 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 SKIN: Normal skin color for ethnicity, warm, dry, intact, no rashes noted. HEENT:? Normocephalic, atraumatic, no stridor, airway patent, no raccoon's eyes, no Lizama sign, dentition intact, EOMI. NECK: Soft, supple, full ROM, midline structures nontender, no step-offs, no deformities, no lymphadenopathy. CHEST: Heart regular rate and rhythm, no murmurs, symmetric chest rise and fall, no crepitus. PULMONARY: Clear to auscultation bilaterally, no labored breathing, no wheezes/rhales/rhonchi. ABDOMINAL: Soft, nondistended, nontender, positive bowel sounds in all quadrants. : Deferred. MUSCULOSKELETAL: Normal tone, full range of motion, no deformities, no contusions, hypertonicity of the bilateral trapezius musculature, TTP overlying the sacrum and coccyx, no contusion or ecchymosis noted, neurovascularly intact in all extremities. NEURO: Alert and oriented x3, CN II through XII intact, equal strength and sensation bilateral upper and lower extremities, no focal neurologic deficits.? PSYCHIATRIC: Anxious affect, fluid speech, good eye contact and appropriate demeanor. Vital Signs: Vital Signs: Last Vital Signs Temp 97.8 F 04/08/25 04:23 Pulse 53 04/08/25 04:23 Resp 14 04/08/25 04:23 BP 104/68 04/08/25 04:23 Pulse Ox 99 04/08/25 04:23 O2 Del Method Room Air 04/08/25 04:23 BMI result Body Mass Index 23.0 Medications Administered Discontinued Medications Generic Name Dose Route Start Last Admin Trade Name Freq PRN Reason Stop Dose Admin Diazepam 2 mg 04/08/25 02:59 04/08/25 03:12 Diazepam 2 Mg Tablet PO 04/08/25 03:00 2 mg ONCE ONE Administration Ibuprofen 600 mg 04/08/25 02:59 04/08/25 03:12 Ibuprofen 600 Mg Tablet PO 04/08/25 03:00 600 mg ONCE ONE Administration Lidocaine 1 patch 04/08/25 02:59 04/08/25 03:12 Lidocaine 4 % Patch Adh..Patch TRANSDERMA 04/08/25 03:00 1 patch ONCE ONE Administration Protocol Medical Decision Making Medical Decision Making MDM Narrative: Patient presents today with chief complaint of trauma. Different diagnosis on this patient includes intracranial hemorrhage, skull fracture, neck injury including fracture or spinal cord pathology. Other diagnoses considered would include chest or abdominal trauma as well as long bone fractures. Based on my physical exam, the ordered imaging modalities are indicated. The patient specifically does not show any signs of central cord syndrome as evidenced by equal strength in the upper extremities with normal two-point discrimination. Sensation is not altered. GCS is appropriate. Patient is neurovascularly intact. There are no signs of vascular emergency. No signs of shock. No respiratory distress. Patient was given valium for pain control. The x-rays do not show evidence of acute fracture. Patient is improved after pain control. Plan for discharge home and outpatient follow-up with primary care. Discharged in stable condition. Differential Diagnosis Differential Diagnoses: The differential diagnosis associated with the presentation includes (as above) Admission/Observation Consideration of admission/observation: Escalation of care including admission/observation considered Radiology Impression Discussion of test interpretation with radiology: I have reviewed the radiologist's reading. Radiologist Impression: 3 views sacrum and coccyx Comparison: None provided Findings No acute fractures. No significant degenerative change. No erosions. IMPRESSION: No acute findings This document has been electronically signed by: Meera Hunter MD on 04/08/2025 04:11:23 Independent Historian Clinical information obtained from an independent historian. History obtained from or confirmed by: Friend Prescription Management I considered prescription management with: Pain Medication Discharge Plan Discharge Clinical Impression: Fall down stairs, Coccyx contusion Patient Disposition: Home, Self-Care Instructions: Contusion in Adults (ED), Fall Prevention (ED) Additional Instructions: Use lidocaine patches topically for pain relief. You may also use muscle relaxers if you are having muscle spasms in your back and neck. Do not use these medications if you are driving as the muscle relaxers can make you drowsy. You may also take Motrin for pain as this medication is anti-inflammatory. Return to the ER with any new or worsening symptoms including: Worsening headaches despite medication, fevers greater than 100?, inability to tolerate food or drink, numbness/tingling/weakness in your legs, any new symptom that concerns you. Call 911 with any medical emergency. Prescriptions: New methocarbamol 500 mg tablet 1,000 mg PO QID Qty: 20 0RF lidocaine 5 % adhesive patch,medicated 1 patch topical DAILY Qty: 15 0RF Rx Instructions: leave on most painful area for up to 12 hrs ibuprofen 600 mg tablet 600 mg PO Q8H PRN (Reason: fever or pain) Qty: 30 0RF No Action cyclobenzaprine 5 mg tablet 5 mg PO BEDTIME PRN (Reason: muscle spasm) Qty: 14 0RF lidocaine [Lidoderm] 5 % adhesive patch,medicated 1 patch topical DAILY Qty: 15 0RF Rx Instructions: leave on most painful area for up to 12 hrs sertraline 50 mg tablet 50 mg PO QAM cyclobenzaprine 5 mg tablet 5 mg PO DAILY Interventions: ED Discharge Assessment Last Done: 04/08/25 04:23 Discharge Date/Time: 04/08/25 04:25 Print Language: German
[2025-04-08 03:10] VITALS: BP 94/48; PULSE 52; RESP 14; O2SAT 99
[2025-04-08] MEDS: Lidocaine 4 % Patch ADH..PATCH 1 PATCH TRANSDERMA (03:12)
[2025-04-08 04:23] VITALS: BP 104/68; PULSE 53; RESP 14; TEMP 36.6; O2SAT 99
== END 2025-04-08 04:25 | disposition home or self-care (01) ==
PROVIDERS: Emergency Provider Emergency Medicine; PCP General Practice
DX: S30.0XXA Contusion of lower back and pelvis, initial encounter (principal); W10.9XXA Fall (on) (from) unspecified stairs and steps, initial encounter; Y93.9 Activity, unspecified; Y92.9 Unspecified place or not applicable; Y99.9 Unspecified external cause status
CPT/HCPCS: 72220; 99284

== ENCOUNTER → 2025-04-08 02:57 | Outpatient (BNV) | payer MEDICAID, SELFPAY | PROVIDERS: Emergency Provider Emergency Medicine; PCP General Practice; Visit Provider Radiology Diagnostic Radiology | DX: M53.3 Sacrococcygeal disorders, not elsewhere classified (principal) | CPT/HCPCS: 72220 ==

== ENCOUNTER 2025-04-23 13:51 | Outpatient (AMB) | payer MEDICAID, SELFPAY ==
--- NOTE | 2025-04-23 13:51 | A.OFFVIS_ITS ---
Vital Signs 04/23/25 13:57 Height 5 ft 2 in Weight 126 lb BMI 23.0 BP 106/58 L Intake Visit Reasons: std testing Engine Hostler: Engine Hostler Present (Angela) Accompanied by: Self / Same As Patient Allergies No Known Allergies Allergy (Verified 04/23/25 13:53) Medication List - Last Reconciled 04/23/25 by Susana Orourke, FRANCIE cyclobenzaprine 5 mg PO BEDTIME PRN cyclobenzaprine 5 mg PO DAILY ibuprofen 600 mg PO Q8H PRN lidocaine 5% (Lidoderm) 1 patch topical DAILY lidocaine 5% 1 patch topical DAILY methocarbamol 1,000 mg (2 x 500 mg) PO QID sertraline 50 mg PO QAM Is last menstrual period known: Yes Last menstrual period: 04/23/25 Post menopausal: No Patient : No HPI HPI std testing: Details: Patient is here because she wants full STD testing she has her. She is on about day 3 of it so she was a little bit concerned but she was told it was find a come in which it as. She has a tubal ligation so she can not get she has children ages 24-11 the 1st 1 was born in [place] and the last 3 were born in [place]. She has a history of abnormal Paps but her last 2 Pap smears were negative with negative co-testing in 2020 and 2022 she tells me she does have an appointment to get another Pap smear done in July of this coming year. 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 Sexual orientation: Straight/Heterosexual Gender identity: Female Female Reproductive History Menstrual Age of Menarche: 9 Date of last menstrual period: 04/23/25 control method: permanent sterilization Total pregnancies: 5 Full term: 4 Date of last pap smear: 03/18/23 (negative pap smear, negative hpv ) Date of Mammogram: 03/05/22 (birad 2) Physical Exam Vital Signs: Last Vital Signs BP 106/58 L 04/23/25 13:57 BMI result Body Mass Index 23.0 Assessment & Plan Assessment & Plan (1) Screen for STD (sexually transmitted disease): Code(s): Z11.3 - Encounter for screening for infections with a predominantly sexual mode of transmission Category: Medical Plan Patient desires full screening. She has her. But that should not matter with the DNA testing testing done during the exam for gonorrhea chlamydia trichomoniasis as well as bacterial vaginosis and yeast. Orders placed so that she can go to the lab for HIV hep B hep C and syphilis screening. She sees her primary care provider Dr. Yaa keating at [facility] for primary care needs and she says she has an appointment with Dr. 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 Her 4 children are age 24-11. Reviewed safer sex which she voices definite awareness of as best practice. Orders: Orders Syphilis Screen Today Z11.3 - Encounter for screening for infections with a predominantly sexual mode of transmission Hepatitis B Surface Antigen Today Z11.3 - Encounter for screening for infections with a predominantly sexual mode of transmission Hepatitis C Antibody Today Z11.3 - Encounter for screening for infections with a predominantly sexual mode of transmission HIV Ab/Ag Today Z11.3 - Encounter for screening for infections with a predominantly sexual mode of transmission Coding Level of Care Code Est Pt Level 3 (85599) Diagnoses Screen for STD (sexually transmitted disease) Z11.3
[2025-04-23 13:57] VITALS: BP 106/58; BMI 23.0
--- OUTSIDE RECORDS SUMMARY | 2025-04-23 17:42 | XMS_ITS | Encounter Summary ---
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 No / Unsure 01/15/2023 8:39 AM EDT documented as of this encounter Plan of Treatment Upcoming Encounters Date Type Department Care Team (Late st Contact Info) Description 04/24/2025 11:30 AM EDT Office Visit [facility] [address] [place] [phone] Yaa Ortiz MD [address] [place] [phone] 06/26/2025 9:30 AM EST Office Visit [facility] [address] [place] [phone] Yaa Ortiz MD [address] [place] [phone] documented as of this encounter Visit Diagnoses Diagnosis BV (bacterial vaginosis)- Primary Unspecified vaginitis and vulvovaginitis documented in this encounter Additional Health Concerns Assessment Noted Time PHQ-9 Depression Total Score: 18 023 11:04 AM EDT documented as of this encounter Care Teams Benefits Specialist Relationship Specialty Start Date End Date Yaa Ortiz MD [address] [place] [phone] PCP - General Family Medicine 05/25/20 documented as of this encounter
--- OUTSIDE RECORDS SUMMARY | 2025-04-23 17:42 | XMS_ITS | Encounter Summary ---
Author Organization [employer] Address [address] [place] [address] Care Team Providers Care Product Development Manager Name Role Phone Yaa Ortiz MD Primary Care Provider [phone] Reason for Visit * Reason Onset Date Comments Chart Prep 04/18/2025 Encounter Details Date Type Department Care Team ([facility] st Contact Info) Description 04/18/2025 Telephone [facility] [address] [place], [place] [phone] Yaa Ortiz MD [address] [place], [place] [phone] Chart Prep Social History Tobacco Use Types Packs/Day Years [...] with others, in a hotel, in a intermediate, living outside on the street, on a [...] 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 file Not on file documented as of this encounter Miscellaneous Notes * Telephone Encounter - Ambika Amor [place] - 04/18/2025 10:41 AM EDT Chart Prep Labs: done Images: done Referrals: not applicable Vaccines due: Covid, Flu, PCV20, Hep B, and HPV Screenings: mammogram and LMP Overdue care gaps: PHQ-9, DILLON-7, and Disability screen documented in this encounter Plan of Treatment Upcoming Encounters Date Type Department Care Team (Late st Contact Info) Description 04/24/2025 11:30 AM EDT Office Visit [facility] [address] [place] [phone] Yaa Ortiz MD [address] [place] [address] 06/26/2025 9:30 AM EST Office Visit [facility] [address] [place], [place] [phone] Yaa Ortiz MD [address] [place], [place] [phone] documented as of this encounter Visit Diagnoses Not on filedocumented in this encounter Additional Health Concerns Assessment Noted Time PHQ-9 Depression Total Score: 21 024 10:38 AM EST documented as of this encounter Care Teams Product Development Manager Relationship Specialty Start Date End Date Yaa Ortiz MD [address] [place], [place] [phone] PCP - General Family Medicine 05/25/20 documented as of this encounter
--- OUTSIDE RECORDS SUMMARY | 2025-04-23 17:42 | XMS_ITS | Encounter Summary ---
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 Agrees to r/s appointment. To Tuesday 04/24 at 11:30am with PCP * Telephone Encounter - Poli Corrales - 04/21/2025 10:51 AM EDT Tc from pt requesting to reschedule missed sick onsite apt missed on 04/20 Contact pt at [phone] (uzbek) documented in this encounter Plan of Treatment Upcoming Encounters Date Type Department Care Team (Late st Contact Info) Description 04/24/2025 11:30 AM EDT Office Visit [facility] [address] [place] [phone] Yaa Ortiz MD [address] [place] [phone] 06/26/2025 9:30 AM EST Office Visit [address] [phone] Yaa Ortiz MD [address] [place] [phone] documented as of this encounter Visit Diagnoses Not on filedocumented in this encounter Additional Health Concerns Assessment Noted Time PHQ-9 Depression Total Score: 21 024 10:38 AM EST documented as of this encounter Care Teams Slag Production Worker Relationship Specialty Start Date End Date Yaa Ortiz MD [address] [place] [phone] PCP - General Family Medicine 05/25/20 documented as of this encounter
--- OUTSIDE RECORDS SUMMARY | 2025-04-23 17:42 | XMS_ITS | Clinical Summary ---
Author Organization [employer] Address [address] [facility] 7t [place] [address] Care Team Providers Care Electric Welder Helper Name Role Phone Yaa Ortiz MD Primary Care Provider [phone] Allergies No known active allergies Medications * [...] placed her on referral lists again, and [facility] consult Assessment & Plan (01/22/2023 11:06 AM [...] to assess PLAN: 1. Follow up with [facility] [place]: Not recommended for follow-up 2. Patient goal is receive services. 3. Behavioral Recommendations a. Patient will engage in OP therapy and psychopharmacology services when established b. Patient will work with case management c. Patient will request to speak with a [facility] [place] during next visit, if needed Cervical intraepithelial [...] Encounters Date Type Department Care Team Description 04/23/2025 Telephone [facility] [address] [place] [address] Yaa Ortiz MD chart prep 04/21/[address] [address] Yaa Ortiz MD Appointment Request 04/18/2025 Telephone [facility] [address] [place] [address] Yaa Ortiz MD Chart Prep 04/15/2025 Telephone [facility] [address] [place] [address] Yaa Ortiz MD 04/08/2025 Orders Only [facility] External Provider, [facility] 03/24/2025 Telephone [facility] [address] [place] [address] Yaa Ortiz MD Nov Recall from Last [...] with others, in a hotel, in a snf, living outside on the street, on a [...] 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 on 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 Not [...] 05/30/2024 10:25 AM EST Plan of Treatment Upcoming Encounters Date Type Department Care Team (Late st Contact Info) Description 04/24/2025 11:30 AM EDT Office Visit [facility] [address] [place] [address] [phone] Yaa Ortiz MD [address] [place], [place] [phone] 06/26/2025 9:30 AM EST Office Visit [facility] [address] [place], [place] [phone] Yaa Ortiz MD [address] [place], [place] [phone] Health Maintenance Due Date Last Done Comments [...] Procedure Name Priority Date/Time Associated Diagnosis Comments XR SACRUM COCCYX 2+ VIEWS Routine 04/08/2025 4:11 AM EDT HEPATITIS C ANTIBODY Routine 06/09/2024 1:29 PM EST HIV 1/2 ANTIGEN/ANTIBODY, FOURTH GENERATION W/RFL Routine 06/09/2024 1:29 PM EST PAP SMEAR Routine 02/15/2023 9:33 AM EDT MAMMOGRAM GENERIC Routine 03/06/2022 3:0 0 PM EDT ZZZ HISTORICAL HPV E6/E7 RFLX JOHAN 16 18/45 Routine 08/09/2020 10:21 AM EST from Last 3 Months or Most Recently Relevant to Health Maintenance Results * XR Sacrum Coccyx 2+ Views (04/08/2025 4:11 AM EDT) Anatomical Region Laterality Modality Sacrum, Coccyx Radiographic Carly ging 04/08/2025 4:11 AM EDT Narrative 04/08/2025 4:12 AM EDT [address] [address] XRay Report Signed Patient: Juju Roberto MR#: [id number] : 1985 Acct:[id number] Age/Sex: 39 / F ADM Date: 04/08/25 Loc: HO.ED Attending Dr: Ordering Physician: Reyna Snyder DO Date of Service: 04/08/25 Procedure(s): XR sacrum coccyx min 2V Accession Number(s): [id number] cc: Reyna Snyder DO; Yaa Ortiz Reason for Exam: fall CLINICAL HISTORY: fall 3 views sacrum and coccyx Comparison: None provided Findings No acute fractures. No significant degenerative change. No erosions. IMPRESSION: No acute findings This document has been electronically signed by: Meera Hunter MD on 04/08/2025 04:11:23 Dictated By: Meera Hunter MD Signed By: <Electronically signed by Meera Hunter MD in OV> 04/08/25410 DD/ 0 TD/TT: 04/08/25410 Animal Control Licensing Worker: Procedure Note Donotuseinterpreter, Image - 04/08/[address] [address] XRay Report Signed Patient: Juju RobertoMR#: [id number] : 1985Acct:[id number] Age/Sex: 39 / FADM Date: 04/08/25 Loc: .ED Attending Dr: Ordering Physician: Reyan Snyder DO Date of Service: 04/08/25 Procedure(s): XR sacrum coccyx min 2V Accession Number(s): [id number] cc: Reyna Snyder ; Yaa Ortiz Reason for Exam: fall CLINICAL HISTORY: fall 3 views sacrum and coccyx Comparison: None provided Findings No acute fractures. No significant degenerative change. No erosions. IMPRESSION: No acute findings This document has been electronically signed by: Meera Hunter MD on 04/08/2025 04:11:23 Dictated By: Meera Hunter MD Signed By: <Electronically signed by Meera Hunter MD in OV> 04/08/25410 DD/ 0 TD/TT: 04/08/25410 Animal Control Licensing Worker: [facility] External Provider IMG XR PROCEDURES Edited Result - Final * Hepatitis C Ab (06/09/2024 1:29 PM EST) Hepatitis C Antibody Nonreactive Nonreactive [facility] Comment:Antibodies to HCV no t detected; does not exclude early acuteHCV infection. 06/09/2024 1:29 PM EST 06/09/2024 1:29 PM EST Generic External Data Provider LAB BLOOD ORDERAB LES Final Result [facility] [address] [place] [phone] * HIV-1/2 Antigen and Antibodies, Fourth Generation, with Reflexes (06/09/2024 1:29 PM EST) HIV AB/AG Nonreactive Nonreactive [facility] Comment:HIV-1 p24 Ag and/or HIV-1/HIV-2 Ab not detected.A test result that is nonreactive does not exclude thepossibility of exposure to or infection with HIV-1 and/orHIV-2. Nonreactive results in this assay for individualswith prior exposure to HIV-1 and/or HIV-2 may be due toantigen and antibody levels that are below the limit ofdetection of this assay.The [employer] HIV Ag/Ab Combo assay result andsupplemental assay results should be interpreted inconjunction with the patient's clinical presentation,history and other laboratory results. If the results areinconsistent with clinical evidence, additional testing issuggested to confirm the result. 06/09/2024 1:29 PM EST 06/09/2024 1:29 PM EST us Generic External Data Provider LAB BLOOD ORDERAB LES Final Result [facility] [address] [place] [phone] * Pap Smear (02/15/2023 9:33 AM EDT) 02/15/2023 9:33 AM EDT 02/16/2023 9:30 AM EDT Narrative [facility] - 03/03/2023 4:21 PM EDT ----- ------- Name: Juju Roberto Age/Sex: 37/F : 1985 Unit#: [id number] Attend Dr: Timothy España MD Re02/15/23 Status: DEP REF Location: HO.LNP Disch: ----- ------- SPEC : [id number] RECD: 02/16/23 STATUS: ROXANNE KUMARI NUM: [id number] CATIE: 02/15/[address] [facility] [address]: Timothy España MD ENTERED: 02/16/23-1119 SP TYPE: Pap Smr OTHR DR: Yaa [...] 59, 66, 68) HPV testing performed by [employer], [place], [place]. See reference laboratory portion of the EMR for entire report. Clinical Information LMP:02/07/23 Previous PAP test:2020, BERNARDINO I Material Received ThinPrep-Cervical Copies To: Yaa Ortiz [address] [place] [address] Timothy España MD [address] [place] [address] [address] [place] [address] ----- ------- Signed (signature on file) Ni Alejandro 03/03/23 1621 ----- ------- END OF REPORT [facility] External Provider LAB CYT OLOGY ORDERABLES Final Result [facility] [address] [place] [phone] * Mammography Report 1 (03/06/2022 3:00 PM EDT) Anatomical Region Laterality Modality Breast Bilateral Mammography 03/06/2022 3:00 PM EDT Narrative 03/06/2022 3:41 PM EDT Refer to the Notes tab for result details [facility] Procedure: Mammography Report 1 Procedure Note ProviderTomasz MD - 10/01/2022 Refer to the Notes tab for result details [facility] Procedure: Mammography Report 1 us Yaa Ortiz MD IMG BI PROCEDURES Final Result * HPV E6/E7 RFLX JOHAN 16 18/45 (08/09/2020 10:21 AM EST) HPV mRNA E6/E7 rflx Not Detected Not Detected [facility] Comment: Methodology: Fire Adjuster-Mediated Amplification This assay detects E6/E7 viral messenger RNA (mRNA) from 14 high-risk HPV types (16,18,31,33,35,39,45,51,52,56,58,59,66,68). The analytical performance characteristics of this assay have been determined by [employer] [facility]. The modifications have not been cleared or approved by the FDA. This assay has been validated pursuant to the CLIA regulations and is used for clinical purposes. For additional information, please refer to http://education.TrashOut/FDE112s5 (This link if provided for information/ educational purposes only.) THIS TEST WAS PERFORMED AT: [facility] [address] [facility] [address]LO[address],[place] [address] ROC LARA MD 08/09/2020 10:2 1 AM EST us Timothy España MD HISTORICAL/NON ORDERABLE LABS Fi nal Result [facility] [address] from Last 3 Months or Most Recently Relevant to Health Maintenance Insurance [facility] C3 Care Teams Electric Welder Helper Relationship Specialty Start Date End Date Yaa Ortiz MD [address] [place] [address] PCP - General Family Medicine 05/25/20
--- OUTSIDE RECORDS SUMMARY | 2025-04-23 17:42 | XMS_ITS | Encounter Summary ---
Author Organization [employer] Address [address] [facility] 7t [place] [address] Care Team Providers Care Sex Worker Or Escort Name Role Phone Yaa Ortiz MD Primary Care Provider [phone] Encounter Details Date Type Department Care Team (Late Contact Info) Description 11/22/2022 Abstract [facility] MEDICINE [address] [place] [address] [phone] Yaa Ortiz MD [address] [place] [address] [phone] Social History Tobacco Use Types Packs/Day Years [...] Encounters Date Type Department Care Team (Late Contact Info) Description 04/24/2025 11:30 AM EDT Office Visit [facility] [address] [place] [phone] Yaa Ortiz MD [address] [place] [address] 06/26/2025 9:30 AM EST Office Visit [facility] [address] [place] [address] Yaa Ortiz MD [address] [place] [phone] documented as of this encounter Procedures Procedure Name Priority Date/Time Associated Diagnosis Comments HM PAP/HPV Routine 08/09/2020 12:00 AM EST COLPOSCOPY Routine 04/02/2019 12:00 AM EDT HM PAP/HPV Routine 01/16/2019 12:00 AM EDT documented in this encounter Results * Hm Pap Smear (08/09/2020 12:00 AM EST) Historical Provider HEALTH MAINTENANCE Final Result * Colposcopy (04/02/2019 12:00 AM EDT) Historical Provider IN CLINIC/BEDSIDE ORDERAB LES Final Result * Pap Smear (01/16/2019 12:00 AM EDT) Historical Provider HEALTH MAINTENANCE Final Result documented in this encounter Visit Diagnoses Not on filedocumented in this encounter Care Teams Sex Worker Or Escort Relationship Specialty Start Date End Date Yaa Ortiz MD [address] [place] [phone] PCP - General Family Medicine 05/25/20 documented as of this encounter
--- OUTSIDE RECORDS SUMMARY | 2025-04-23 17:42 | XMS_ITS | Encounter Summary ---
Author Organization [employer] Address [address] [facility] 7t [place] [address] Care Team Providers Care Learning Developer Name Role Phone Yaa Ortiz MD Primary Care Provider [phone] Reason for Visit * Reason Onset Date Comments chart prep 04/23/2025 Encounter Details Date Type Department Care Team ([facility] st Contact Info) Description 04/23/2025 Telephone [facility] MEDICINE [address] [place], [place] [phone] Yaa Ortiz MD [address] [place], [place] [phone] chart prep Social History Tobacco Use Types Packs/Day Years [...] with others, in a hotel, in a retirement, living outside on the street, on a [...] 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 file Not on file documented as of this encounter Miscellaneous Notes * Telephone Encounter - [place] - 04/23/2025 10:53 AM EDT Chart Prep Labs: not applicable Images: done Referrals: not applicable Vaccines due: Covid, Flu, PCV20, Hep B, and HPV Screenings: mammogram Overdue care gaps: PHQ-9, DILLON-7, and Disability screen documented in this encounter Plan of Treatment Upcoming Encounters Date Type Department Care Team (Late st Contact Info) Description 04/24/2025 11:30 AM EDT Office Visit [facility] MEDICINE [address] [place] [phone] Yaa Ortiz MD [address] [place] [address] 06/26/2025 9:30 AM EST Office Visit [facility] MEDICINE [address] [place], [place] [phone] Yaa Ortiz MD [address] [place], [place] [phone] documented as of this encounter Visit Diagnoses Not on filedocumented in this encounter Additional Health Concerns Assessment Noted Time PHQ-9 Depression Total Score: 21 024 10:38 AM EST documented as of this encounter Care Teams Learning Developer Relationship Specialty Start Date End Date Yaa Ortiz MD [address] [place], [place] [phone] PCP - General Family Medicine 05/25/20 documented as of this encounter
== END 2025-04-23 14:32 | disposition home or self-care (01) ==
LOC: HO.HWSM 13:51
PROVIDERS: PCP General Practice; Visit Provider Advanced Practice Midwife
DX: Z11.3 Encounter for screening for infections with a predominantly sexual mode of transmission (principal)
CPT/HCPCS: 99213

== ENCOUNTER 2025-04-23 13:51 | Outpatient (REF) | payer MEDICAID, SELFPAY ==
[2025-04-24 03:17] LABS: Syphilis Screen Nonreactive (Nonreactive)
[2025-04-24 03:24] LABS: HBsAGNum1 0.34 S/CO (0.00-0.99); HIV Num 1 0.06 S/CO (0.00-0.99); Hepatitis B Surface Antigen Negative (Negative); ~HepC Num1 0.10 S/CO (0.00-0.79); ~Hepatitis C Antibody Nonreactive (Nonreactive)
== END 2025-04-23 13:52 | disposition home or self-care (01) ==
LOC: HO.HHCL 13:51
PROVIDERS: PCP General Practice; Visit Provider Advanced Practice Midwife
DX: Z11.4 Encounter for screening for human immunodeficiency virus [HIV] (principal); Z11.59 Encounter for screening for other viral diseases; Z11.3 Encounter for screening for infections with a predominantly sexual mode of transmission; Z98.51 Tubal ligation status; Z79.899 Other long term (current) drug therapy
CPT/HCPCS: 36415; 86780; 86803; 87340; 87389; 99212

== ENCOUNTER 2025-04-23 14:43 | Outpatient (REF) | payer MEDICAID, SELFPAY ==
[2025-04-24 04:40] LABS: Bacterial Vaginosis PCR POSITIVE (Negative); Candida Group PCR NOT DETECTED (Not Detect); Candida glab krusei PCR NOT DETECTED (Not Detect); Trichomonas vaginalis PCR NOT DETECTED (Not Detect)
[2025-04-24 05:11] LABS: CT PCR Urine NOT DETECTED (Not Detect.); NG PCR Urine NOT DETECTED (Not Detect.)
== END 2025-04-23 14:44 | disposition home or self-care (01) ==
LOC: HO.LNP 14:43
PROVIDERS: Visit Provider Advanced Practice Midwife
DX: Z20.2 Contact with and (suspected) exposure to infections with a predominantly sexual mode of transmission (principal)
CPT/HCPCS: 81515; 87491; 87591

== ENCOUNTER 2025-07-07 14:16 | Emergency (ER) | payer MEDICAID, SELFPAY ==
--- OUTSIDE RECORDS SUMMARY | 2025-07-07 18:30 | XMS_ITS | Encounter Summary ---
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
--- OUTSIDE RECORDS SUMMARY | 2025-07-07 18:30 | XMS_ITS | Clinical Summary ---
Author Organization [employer] Address [address] [facility] 7t [place] [address] Care Team Providers Care Core Shaper Top Name Role Phone Yaa Ortiz MD Primary Care Provider [phone] Allergies No known active allergies Medications * [...] mouth Once per day. 30 tablet 4 Active cyclobenzaprine (Flexeril) 5 MG tablet TAKE 5 MG ORALLY BEDTIME NEEDED FOR MUSCLE SPASM 5 Active lidocaine (Lidoderm) 5 % patch APPLY 1 PATCH TOPICALLY DAILY LEAVE ON MOST PAINFUL AREA FOR UP TO 12 HRS 5 Active Active Problems Problem Noted Date Diagnosed [...] placed her on referral lists again, and [facility] consult Assessment & Plan (01/22/2023 11:06 [...] to assess PLAN: 1. Follow up with [facility]: Not recommended for follow-up 2. Patient goal is receive services. 3. Behavioral Recommendations a. Patient will engage in OP therapy and psychopharmacology services when established b. Patient will work with case management c. Patient will request to speak with a [facility] during next visit, if needed Cervical intraepithelial [...] Encounters Date Type Department Care Team Description 06/10/[address] [address] Yaa Ortiz MD No Show 05/13/[address] [address] Yaa Ortiz MD No Show 04/23/2025 Orders Only GENERIC EXTERNAL DATA DEPARTMENT Provider, Generic External Data 04/23/[address] [address] Yaa Ortiz MD chart prep 04/21/[address] [address] Yaa Ortiz MD Appointment Request 04/18/[address] [address] Yaa Ortiz MD Chart Prep 04/15/[address] [address] Yaa Ortiz MD 04/08/2025 Orders Only [facility] External Provider, [facility] from Last 3 Months Immunizations Immunization Administration [...] with others, in a hotel, in a penitentiary, living outside on the street, on a [...] 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 on 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 Not [...] Health Maintenance Due Date Last Done Comments Disability Screening 1985 Alcohol/Substance Use Screening 1996 Family Planning (PISQ) 10/21/1999 HPV Vaccines (1 - 3-dose series) 10/21/1999 Pneumococcal Vaccine: Pediatrics (0 to 5 Years) and At-Risk Patients (6 to 49) Years (1 of 2 - PCV) 10/21/2003 Hepatitis B Vaccines (2 of 3 - 19+ 3-dose series) 12/21/2015 11/23/2015 Mammogram 03/06/2023 03/06/2022, 02/07, 07/03/2018 Depression Monitoring 11/27/2024 05/30/2024, 024 COVID-19 Vaccine ( season) 2025 12/27/2021, 05/25/2021, 04/25/2021 Influenza Vaccine (#1) 2025 06/24/2018 SDOH Screening 05/30/2025 05/30/2024 Tobacco Screening 05/30/2025 05/30/2024 Cervical Cancer Screening 02/16/2028 HPV/Cotest 02/16/2028 08/09/2020, 08/09/2020 Pap Smear 02/16/2028 02/15/2023, 02/0 07/2020, 01/16/2019 DTaP/Tdap/Td Vaccines (2 - Td or Tdap) 06/24/2028 06/24/2018 Zoster Vaccines (1 of 2) 2034 RSV Patients and Patients Aged 60 years or older (1 - 1-dose 75+ series) 10/21/2059 HIV Screening Completed 04/23/2025, 1208/2023, 12/14/2020, Additional history exists Hepatitis C Screening Completed 04/23/2025 , 06/09/2024, 12/14/2020, Additional history exists HIB Vaccines Aged Out No longer eligi [...] Name Priority Date/Time Associated Diagnosis Comments HEPATITIS B SURFACE ANTIGEN, EIA Routine 04/23/2025 2:25 PM EDT HIV 1/2 ANTIGEN/ANTIBODY, FOURTH GENERATION W/RFL Routine 04/23/2025 2:25 PM EDT HEPATITIS C ANTIBODY Routine 04/23/2025 2:25 PM EDT SYPHILIS SCREEN Routine 04/23/2025 2:25 PM EDT XR SACRUM COCCYX 2+ VIEWS Routine 04/08/2025 4:11 AM EDT PAP SMEAR Routine 02/15/2023 9:33 AM EDT MAMMOGRAM GENERIC Routine 03/06/2022 3:0 0 PM EDT ZZZ HISTORICAL HPV E6/E7 RFLX JOHAN 16 18/45 Routine 08/09/2020 10:21 AM EST from Last 3 Months or Most Recently Relevant to Health Maintenance Results * Syphilis Screen (04/23/2025 2:25 PM EDT) [facility] Syphilis Screen Nonreactive Nonreactive [facility] 04/23/2025 2:25 PM EDT 04/23/2025 3:56 PM EDT us Generic External Data Provider LAB BLOOD ORDERAB LES Final Result Performing Organization Address City/[facility]/ZIP Co de Phone Number [facility] [address] [place] [phone] * Hepatitis C Ab (04/23/2025 2:25 PM EDT) [facility] Hepatitis C Antibody Nonreactive Nonreactive [facility] Comment:Antibodies to HCV no t detected; does not exclude early acuteHCV infection. 04/23/2025 2:25 PM EDT 04/23/2025 3:56 PM EDT Generic External Data Provider LAB BLOOD ORDERAB LES Final Result Performing Organization Address City/[facility] Co de Phone Number [facility] [address] [place] [phone] * Hepatitis B surface antigen, EIA (04/23/2025 2:25 PM EDT) [facility] Hepatitis B Surface Ag Negative Negative [facility] 04/23/2025 2:25 PM EDT 04/23/2025 3:56 PM EDT Generic External Data Provider LAB BLOOD ORDERAB LES Final Result Performing Organization Address City/[facility] Co de Phone Number [facility] [address] [place] [phone] * HIV-1/2 Antigen and Antibodies, Fourth Generation, with Reflexes (04/23/2025 2:25 PM EDT) HIV AB/AG Nonreactive Nonreactive [facility] Comment:HIV-1 p24 Ag and/or HIV-1/HIV-2 Ab not detected.A test result that is nonreactive does not exclude thepossibility of exposure to or infection with HIV-1 and/orHIV-2. Nonreactive results in this assay for individualswith prior exposure to HIV-1 and/or HIV-2 may be due toantigen and antibody levels that are below the limit ofdetection of this assay.The [employer] HIV Ag/Ab Combo assay result andsupplemental assay results should be interpreted inconjunction with the patient's clinical presentation,history and other laboratory results. If the results areinconsistent with clinical evidence, additional testing issuggested to confirm the result. 04/23/2025 2:25 PM EDT 04/23/2025 3:56 PM EDT us Generic External Data Provider LAB BLOOD ORDERAB LES Final Result [facility] [address] [place] [phone] * XR Sacrum Coccyx 2+ Views (04/08/2025 4:11 AM EDT) Anatomical Region Laterality Modality Sacrum, Coccyx Radiographic Carly ging 04/08/2025 4:11 AM EDT Narrative 04/08/2025 4:12 AM EDT [address] [address] XRay Report Signed Patient: Juju Roberto MR#: [id number] : 1985 Acct:[id number] Age/Sex: 39 / F ADM Date: 04/08/25 Loc: .ED Attending Dr: Ordering Physician: Reyna Snyder DO Date of Service: 04/08/25 Procedure(s): XR sacrum coccyx min 2V Accession Number(s): [id number] cc: Reyna Snyder DO; Yaa Ortiz Reason [...] in OV> 04/08/25410 DD/ 0 TD/TT: 04/08/25410 Physiologist: Procedure Note Donotuseinterpreter, Image - 04/08/2025 [place] [address] XRay Report Signed Patient: Don Roberto#: [id number] : 1985Acct:[id number] Age/Sex: 39 / FADM Date: 04/08/25 Loc: .ED Attending Dr: Ordering Physician: Reyna Snyder DO Date of Service: 04/08/25 Procedure(s): XR sacrum coccyx min 2V Accession Number(s): [id number] cc: Reyna Snyder DO; Yaa Ortiz Reason [...] in OV> 04/08/25410 DD/ 0 TD/TT: 04/08/25410 Physiologist: [facility] External Provider IMG XR PROCEDURES Edited Result - Final * Pap Smear (02/15/2023 9:33 AM EDT) 02/15/2023 9:33 AM EDT 02/16/2023 9:30 AM EDT [facility] - 03/03/2023 4:21 PM EDT ----- ------- Name: Juju Roberto Age/Sex: 37/F : 1985 Unit#: [id number] Attend Dr: Timothy España MD Re02/15/23 Status: DEP REF Location: [facility] Disch: ----- ------- SPEC : [id number] RECD: 02/16/23 STATUS: ROXANNE KUMARI NUM: [id number] CATIE: 02/15/23 [facility] DR: Timothy España MD ENTERED: 02/16/23111 SP TYPE: Pap Smr OTHR DR: Yaa [...] 59, 66, 68) HPV testing performed by [facility], [place], [place]. See reference laboratory portion of the EMR for entire report. Clinical Information LMP:02/07/23 Previous PAP test:2020, BERNARDINO I Material Received ThinPrep-Cervical Copies To: Yaa Ortiz [address] [place] [address] Timothy España MD [address] [place] [address] [place] [address] ----- ------- Signed (signature on file) Ni Alejandro 03/03/23 1621 ----- ------- END OF REPORT [facility] External Provider LAB [facility] ORDERABLES Final Result [facility] [address] [place] [phone] * Mammography Report 1 (03/06/2022 3:00 PM EDT) Anatomical Region Laterality Modality Breast Bilateral Mammography 03/06/2022 3:00 PM EDT Narrative 03/06/2022 3:41 PM EDT Refer to the Notes tab for result details [facility] Procedure: Mammography Report 1 Procedure Note Provider, MD Tomasz - 10/01/2022 Refer to the Notes tab for result details [facility] Procedure: Mammography Report 1 Yaa Ortiz MD IMG BI PROCEDURES Final Result * HPV E6/E7 RFLX JOHAN 16 18/45 (08/09/2020 10:21 AM EST) HPV mRNA E6/E7 rflx Not Detected Not Detected [facility] Comment: Methodology: Inspector Mechanical-Mediated Amplification This assay detects E6/E7 viral messenger RNA (mRNA) from 14 high-risk HPV types (16,18,31,33,35,39,45,51,52,56,58,59,66,68). The analytical performance characteristics of this assay have been determined by [facility]. The modifications have not been cleared or approved by the FDA. This assay has been validated pursuant to the CLIA regulations and is used for clinical purposes. For additional information, please refer to http://education.WebVet/GNT971w2 (This link if provided for information/ educational purposes only.) THIS TEST WAS PERFORMED AT: [employer] [address] [place] [address] [address],[place] [address] ROC LARA MD 08/09/2020 10:2 1 AM EST Timothy España MD HISTORICAL/NON ORDERABLE LABS Fi nal Result [facility] [address] from Last 3 Months or Most Recently Relevant to Health Maintenance Insurance [facility] C3 Care Teams Core Shaper Top Relationship Specialty Start Date End Date Yaa Ortiz MD [address] [place] [phone] PCP - General Family Medicine 05/25/20
--- OUTSIDE RECORDS SUMMARY | 2025-07-07 18:30 | XMS_ITS | Encounter Summary ---
Author Organization [employer] Address [address] [place] [address] Care Team Providers Care Signing Agent Name Role Phone Yaa Ortiz MD Primary Care Provider [phone] Encounter Details Date Type Department Care Team (Late st Contact Info) Description 11/22/2022 Abstract [facility] [address] [place], [place] [phone] Yaa Ortiz MD [address] [place], [place] [phone] Social History Tobacco Use Types Packs/Day Years [...] on filedocumented in this encounter Care Teams Signing Agent Relationship Specialty Start Date End Date Yaa Ortiz MD [address] [place] [id number] PCP - General Family Medicine 05/25/20 documented as of this encounter
== END 2025-07-07 19:00 | disposition left against medical advice (07) ==
PROVIDERS: Emergency Provider Emergency Medicine; PCP General Practice
DX: Z04.1 Encounter for examination and observation following transport accident (principal); Z53.21 Procedure and treatment not carried out due to patient leaving prior to being seen by health care provider